=== PATIENT | female | born 1940 | race Caucasian/White ===

== ENCOUNTER 2018-01-03 18:57 | Inpatient (IN) | payer OTHER ==
[2018-01-03] MEDS: ALBUTEROL 0.5% (NEB) 2.5 MG/0.5 ML AMP INH (19:16)
[2018-01-03] MEDS: IPRATROPIUM (NEB) 0.5 MG/2.5 ML AMP INH (19:17)
[2018-01-03] MEDS: METHYLPREDNISOLONE 125 MG INJ IV (19:29)
[2018-01-03 19:36] LABS: ADD MAN DIFF? NO
[2018-01-03 19:37] LABS: WHITE BLOOD COUNT 10.9 10^3/ul (4.8-10.8)
[2018-01-03 19:37] LABS: BASOPHIL # 0.1 10^3/ul (0.0-0.1); BASOPHILS % 0.5 % (0.0-2.0); EOSINOPHILS # 0.2 10^3/ul (0.0-0.5); EOSINOPHILS % 1.6 % (0.0-7.0); HEMATOCRIT 36.2 % (37.0-47.0); HEMOGLOBIN 12.3 g/dl (12.0-16.0); LYMPHOCYTES # 2.1 10^3/ul (0.8-2.9); LYMPHOCYTES % 19.4 % (15.0-51.0); MEAN CORPUSCULAR HEMOGLOBIN 31.1 pg (29.0-33.0); MEAN CORPUSCULAR VOLUME 91.4 fl (82.0-101.0); MEAN PLATELET VOLUME 9.3 fl (7.4-10.4); MONOCYTE # 0.6 10^3/ul (0.3-0.9); MONOCYTES % 5.5 % (0.0-11.0); NEUTROPHIL # 7.9 10^3/ul (1.6-7.5); NEUTROPHILS % 72.5 % (39.0-77.0); PLATELET COUNT 299 10^3/UL (140-415); RED BLOOD COUNT 3.96 10^6/ul (4.20-5.40); RED CELL DISTRIBUTION WIDTH 12.9 % (11.5-14.5)
[2018-01-03 19:56] LABS: INR 1.16; PT RATIO 1.2
[2018-01-03 19:57] LABS: PARTIAL THROMBOPLASTIN TIME 28.1 Sec (23.0-35.0)
[2018-01-03 20:03] LABS: ALANINE AMINOTRANSFERASE 25 IU/L (13-69); ALBUMIN 3.5 g/dl (3.3-4.9); ALBUMIN/GLOBULIN RATIO 0.87; ALKALINE PHOSPHATASE 144 IU/L (42-121); ANION GAP 12 (8-16); ASPARTATE AMINO TRANSFERASE 39 IU/L (15-46); BILIRUBIN,INDIRECT 0.3 mg/dl (0-1.1); BILIRUBIN,TOTAL 0.3 mg/dl (0.2-1.3); BLOOD UREA NITROGEN 11 mg/dl (7-20); CALCIUM 8.4 mg/dl (8.4-10.2); CARBON DIOXIDE 35 mmol/L (21-31); CHLORIDE 79 mmol/L (97-110); CREATININE 0.43 mg/dl (0.44-1.00); GLUCOSE 116 mg/dl (70-220); LIPASE 48 U/L (23-300); POTASSIUM 4.2 mmol/L (3.5-5.1); SODIUM 122 mmol/L (135-144); TOTAL PROTEIN 7.5 g/dl (6.1-8.1)
[2018-01-03 20:14] LABS: TROPONIN-I 0.014 ng/ml (0.000-0.120)
[2018-01-03] MEDS: SOD CHLORIDE 0.9% 500 ML IV (20:23)
[2018-01-03] MEDS ORDERED: BISACODYL 10 MG SUPP PR (20:30)
[2018-01-03] MEDS ORDERED: ACETAMINOPHEN 325 MG TAB PO (20:30)
[2018-01-03] MEDS ORDERED: NITROGLYCERIN (SL) 0.4 MG TAB SL (20:30)
[2018-01-03] MEDS ORDERED: LORAZEPAM 2 MG INJ IV (20:30)
[2018-01-03] MEDS ORDERED: ALBUTEROL/IPRATROPIUM (NEB) 3 ML AMP HHN (20:30)
[2018-01-03] MEDS ORDERED: MAGNESIUM HYDROXIDE 30ML CUP PO (20:30)
[2018-01-03] MEDS ORDERED: NACL 0.9% 3 ML SYG IV (20:30)
[2018-01-03] MEDS ORDERED: ONDANSETRON 4 MG INJ IV (20:30)
[2018-01-03] MEDS ORDERED: morphine 2 MG INJ IV (20:30)
[2018-01-03] MEDS ORDERED: DOCUSATE SODIUM 100 MG CAP PO (20:30)
[2018-01-03 20:38] LABS: AADO2 Arterial 151.6 mmHg (7.0-24.0); Allen Test ACCEPTAB; Arterial Base Excess 4.9 mmol/L (-3.0-3); Arterial Blood Gas Oxygen Sat 98.9 mmHG (95.0-100.0); Arterial COHb 0.9 % (0.0-3.0); Arterial Fraction of Oxyhgb 97.8 % (93.0-99.0); Arterial HCO3 31.4 mmol/L (22.0-26.0); Arterial MetHb 0.2 % (0.0-1.5); Arterial Total Hemglobin 13.7 g/dl (12.0-18.0); Arterial pCO2 53.9 mmhg (35-45); Blood Gas IEPAP 15/5; Blood Gas PS 10; MODE MASK - BIPAP; Site Right Radial
[2018-01-03] MEDS: LORAZEPAM 2 MG INJ IV (20:58)
[2018-01-04] MEDS: METHYLPREDNISOLONE 125 MG INJ IV ×5 (00:01→23:16)
[2018-01-04] MEDS: ALBUTEROL/IPRATROPIUM (NEB) 3 ML AMP HHN ×4 (00:45→23:51)
[2018-01-04] MEDS: PANTOPRAZOLE (EC) 40 MG TAB PO (06:15)
[2018-01-04 07:32] LABS: HEMATOCRIT 36.9 % (37.0-47.0); HEMOGLOBIN 12.4 g/dl (12.0-16.0); MEAN CORPUSCULAR HEMOGLOBIN 31.1 pg (29.0-33.0); MEAN CORPUSCULAR HGB CONC 33.6 g/dl (32.0-37.0); MEAN CORPUSCULAR VOLUME 92.5 fl (82.0-101.0); MEAN PLATELET VOLUME 9.5 fl (7.4-10.4); PLATELET COUNT 264 10^3/UL (140-415); RED BLOOD COUNT 3.99 10^6/ul (4.20-5.40); RED CELL DISTRIBUTION WIDTH 13.1 % (11.5-14.5)
[2018-01-04 07:32] LABS: WHITE BLOOD COUNT 4.5 10^3/ul (4.8-10.8)
[2018-01-04 07:34] LABS: ADD MAN DIFF? YES; POSITIVE DIFF @See below
[2018-01-04 07:49] LABS: CREATINE KINASE 29 IU/L (23-200)
[2018-01-04 07:54] LABS: ANION GAP 12 (8-16); BLOOD UREA NITROGEN 7 mg/dl (7-20); CALCIUM 8.7 mg/dl (8.4-10.2); CARBON DIOXIDE 35 mmol/L (21-31); CHLORIDE 86 mmol/L (97-110); CREATININE 0.46 mg/dl (0.44-1.00); GLUCOSE 140 mg/dl (70-220); MAGNESIUM 1.8 mg/dl (1.7-2.5); POTASSIUM 4.3 mmol/L (3.5-5.1); SODIUM 129 mmol/L (135-144)
[2018-01-04 08:02] LABS: CK INDEX 13.1; CK-MB 3.79 ng/ml (0.0-2.4); TROPONIN-I 0.012 ng/ml (0.000-0.120)
[2018-01-04 08:04] LABS: ANISOCYTOSIS 2+ (0-0); LYMPHOCYTES #M 0.5 10^3/ul (0.8-2.9); LYMPHOCYTES % (M) 13 % (15-51); MONOCYTES % (M) 1 % (0-11); MYELOCYTES #M 0.1 10^3/ul (0.0-0.0); MYELOCYTES % (M) 3 % (0-0); PLATELET ESTIMATE NORMAL; SEGMENTED NEUTROPHILS (M) % 83 % (39-77); SMUDGE%M 25 % (0-0)
[2018-01-04] MEDS: FLUTICASONE/VILANTEROL 100-25 INH (08:54)
[2018-01-04] MEDS: NEBIVOLOL 5 MG TAB PO (08:56)
[2018-01-04] MEDS: ENOXAPARIN 40 MG/0.4 ML SYG SC (09:03)
[2018-01-05] MEDS: METHYLPREDNISOLONE 125 MG INJ IV (05:37)
[2018-01-05] MEDS: PANTOPRAZOLE (EC) 40 MG TAB PO (05:37)
[2018-01-05] MEDS: NEBIVOLOL 5 MG TAB PO (08:38)
[2018-01-05] MEDS: FLUTICASONE/VILANTEROL 100-25 INH (08:38)
[2018-01-05] MEDS: ENOXAPARIN 40 MG/0.4 ML SYG SC (08:43)
[2018-01-05] MEDS: ALBUTEROL/IPRATROPIUM (NEB) 3 ML AMP HHN (09:49)
[2018-01-05] MEDS: predniSONE 20 MG TAB PO (09:56)
[2018-01-05 10:20] LABS: ADD MAN DIFF? NO
[2018-01-05 10:22] LABS: ABNORMAL IP MESSAGE 1; BASOPHILS % 0.1 % (0.0-2.0); HEMATOCRIT 38.4 % (37.0-47.0); HEMOGLOBIN 12.7 g/dl (12.0-16.0); LYMPHOCYTES # 0.4 10^3/ul (0.8-2.9); LYMPHOCYTES % 4.4 % (15.0-51.0); MEAN CORPUSCULAR HEMOGLOBIN 31.4 pg (29.0-33.0); MEAN CORPUSCULAR HGB CONC 33.1 g/dl (32.0-37.0); MEAN PLATELET VOLUME 9.7 fl (7.4-10.4); MONOCYTE # 0.3 10^3/ul (0.3-0.9); MONOCYTES % 3.7 % (0.0-11.0); NEUTROPHIL # 7.8 10^3/ul (1.6-7.5); PLATELET COUNT 279 10^3/UL (140-415); RED BLOOD COUNT 4.04 10^6/ul (4.20-5.40); RED CELL DISTRIBUTION WIDTH 13.4 % (11.5-14.5)
[2018-01-05 10:22] LABS: WHITE BLOOD COUNT 8.6 10^3/ul (4.8-10.8)
[2018-01-05 10:33] LABS: POSITIVE DIFF @See below
[2018-01-05] MEDS: AZITHROMYCIN 250 MG TAB PO (11:00)
[2018-01-05 11:02] LABS: ANION GAP 13 (8-16); BLOOD UREA NITROGEN 14 mg/dl (7-20); CARBON DIOXIDE 37 mmol/L (21-31); CHLORIDE 86 mmol/L (97-110); GLUCOSE 158 mg/dl (70-220); POTASSIUM 4.6 mmol/L (3.5-5.1); SODIUM 131 mmol/L (135-144)
== END 2018-01-05 12:38 | disposition home health service (06) | DRG 189 ==
LOC: E/R 18:57 → TEL 20:24
DX: J96.01 Acute respiratory failure with hypoxia (principal); E87.1 Hypo-osmolality and hyponatremia; J96.02 Acute respiratory failure with hypercapnia; I27.20 Pulmonary hypertension, unspecified; J84.10 Pulmonary fibrosis, unspecified; Z74.01 Bed confinement status; J40 Bronchitis, not specified as acute or chronic
CPT/HCPCS: 36415; 36600; 70450; 71045; 80048; 80053; 82550; 82553; 82803; 83690; 83735; 84484; 85025; 85610; 85730; 87040; 93005; 94640; 94644; 94660; 94664; 96374; 99291-25